=== PATIENT | female | born 1990 | race Caucasian/White ===

== ENCOUNTER 2023-12-27 11:16 | Emergency (ER) | payer OTHER, SELFPAY ==
[2023-12-27 11:41] VITALS: BP 154/104
--- NOTE | 2023-12-27 12:35 | ED.MUSCINJ ---
HPI-Injury
General
Chief Complaint: Musculo-Skeletal Complaint
Source: patient
Exam Limitations: none
Time Seen by Provider: 12/27/23 12:34
Nursing documentation reviewed up to this point in time: agreed with
Travel History
Have you had any contact with someone who has COVID-19?: No
Do you have any symptoms of coronavirus? Fever > 100 degrees, chills, cough, shortness of breath, sore throat, loss of taste or smell, muscle aches, or headache?: No
History of Present Illness-Injury
Initial Injury comments:
33-year-old female w hx IDDM, states she had carpal tunnel surgery on her right hand 10/22/[address] Angeles, she has had intermittent swelling and pain, her fingers 'turn blue' at times, she saw Dr. Angeles for follow-up because of these symptoms and she
states they did not really tell her anything about it just to watch it. She states she woke up today and every time she pronates her hand 'shakes.' She called the office today and has another appointment for next week but 'I didn't want to wait.'
She missed a month of work 10/22-12/22, went back to work this past week and now states she cannot work due to symptoms and now, including the shaking of her hand.
Past History
Past History
ED Past Medical History: Asthma, GERD, IDDM and Psychiatric (Anxiety)
ED Past Surgical History: Orthopedic (Carpal tunnel surgery Right wrist 10/2023) and Other ([place] teeth)
Social History
Tobacco: Smoker
Alcohol: Occasional
Drug: None
Personal: Single
Living: other (Significant other)
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
Family History: Other (grandfather in 60's of heart attack, also diabetic)
Review of Systems
Review of Systems
Allergies reviewed?: Yes
All Other Systems: ROS reviewed and negative except as documented in HPI and ROS
Constitutional: Denies fever
Musculoskeletal: Reports other (States intermittent swelling, discoloration, [id number] in fingertips of right hand and today started with tremors with supination of the hand.)
Skin: Reports no symptoms (well healing scar)
Phy Exam
Physical Exam
Physical Exam:
GENERAL: No acute distress. A&Ox3.
CONSTITUTIONAL: Afebrile.
RESPIRATORY: Regular respirations, nonlabored, lungs clear.
CARDIOVASCULAR: Regular rate and rhythm, no murmurs, no rubs.
MUSCULOSKELETAL: Tremors right hand only with supination. Observed texting with good, normal dexterity of all fingers. Full ROM of all fingers, wrist. No significant swelling, no discoloration, sensation intact and normal all fingers. Brisk
capillary refill all fingers. Moves with ease. Well perfused.
SKIN: Warm, dry, pink. Well healing vertical scar from carpal tunnel surgery. No redness or warmth.
PSYCH: Normal mood and affect. Well kept, interactive and appropriate
NEUROLOGIC: Awake, alert and oriented. No focal neurological deficits
MDM/Problems Addressed
Differential Diagnosis Includes:
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
MDM/Problems Addressed:
33-year-old female w hx IDDM, states she had carpal tunnel surgery on her right hand 10/22/[address] Angeles, she has had intermittent swelling and pain, her fingers 'turn blue' at times, she saw Dr. Angeles for follow-up because of these symptoms and she
states they did not really tell her anything about it just to watch it. She states she woke up today and every time she pronates her hand 'shakes.' She called the office today and has another appointment for next week but 'I didn't want to wait.'
She missed a month of work 10/22-12/22, went back to work this past week and now states she cannot work due to symptoms and now, including the shaking of her hand.
Shena Medel, had carpal tunnel surgery 10/22 has had intermittent numbness, pain, swelling, purple discoloration, pins and needles fingertips and saw Dr. Angeles or his PA last week for these and told to just wait and observe (per patient) She is here
because today when she supinates the hand it 'shakes' uncontrollably. She has appointment for this on 01/02 but does not want to wait. 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
shaking.
1:48 PM
Exam at this time is unremarkable
Tremors right hand intermittent and only with supination. Observed texting with good, normal dexterity of all fingers. Full ROM of all fingers, wrist. No significant swelling, no discoloration, sensation intact and normal all fingers. Brisk
capillary refill all fingers. Moves with ease. Well perfused.
At this time the circulation and neurological check of hand shows nothing worrisome.
With no new injury, xray is not indicated. Has wrist splint at she can use if it helps.
4 attempts to reach someone at Dr. Mosquera office to by myself and by the shotgun shell reprinting unit operator. Twice when shotgun shell reprinting unit operator got a human being, she was eventually put on hold and hung up on. Unable to reach anyone at Dr. Angeles's office
No urgent concerns at this time, she will keep her appoint on 01/02.
Chronic conditions affecting care: DM
*Critical Care Note
Total Time (30-74mins, 75-104mins- exclusive of procedures): Not Applicable
ED Attending Note
-
Portions of this chart may have been created with voice recognition software.� Occasional wrong word or��sound alike� substitutions may have occurred due to the inherent limitations of voice recognition software.
Discharge Plan
Departure
Patient Disposition: Home (Routine Discharge)
Date of Disposition: 12/27/23
Time of Disposition: 14:07
Patient with high blood pressure during this ER visit?: No
Condition: Good
Discharge Problem:
Tremor of right hand
Prescriptions:
No Action
venlafaxine [Effexor XR] 150 MG capsule,extended release 24hr
150 mg PO DAILY
insulin lispro [Admelog U-100 Insulin lispro] 100 UNIT/ML solution
100 unit SQ .VIA INSULIN PUMP
Patient Comments:
pt states she has an insulin pump and nuses it as directed and that the dose varies
ibuprofen 600 MG tablet
600 mg PO Q4HPRN PRN (Reason: cramps) 0RF
ondansetron 4 mg tablet,disintegrating
4 mg PO Q8H PRN (Reason: nausea and vomiting) Qty: 7 0RF
Referrals:
Renato Barrios MD [Family Provider] -
Activity Restrictions/Additional Instructions:
As we discussed, at this time the circulation and neurological check of your hand shows nothing worrisome.
With no new injury, xray is not indicated. Try wearing the wrist splint you have at home to see if it helps.
Keep your appointment with Dr. Angeles on the .
Interventions
Interventions:
*Risk Screen - Suicide Last Done: 12/27/23 11:36
*General Assessment Last Done: 12/27/23 11:36
*Neglect/Abuse Screening Last Done: 12/27/23 11:36
*Nursing Disposition Last Done: 12/27/23 14:34
ED-Musculoskeletal Assessment Last Done: 12/27/23 13:59
Discharge Date and Time
Discharge Date/Time: 12/27/23 14:34
Print Language: GERMAN
== END 2023-12-27 14:34 | disposition home or self-care (01) ==
LOC: EMR 11:16
PROVIDERS: EMERGENCY PHYSICIAN Student in an Organized Health Care Education/Training Program; FAMILY PHYSICIAN Family Medicine
DX: R25.1 Tremor, unspecified (principal); R20.2 Paresthesia of skin; M79.89 Other specified soft tissue disorders; L98.8 Other specified disorders of the skin and subcutaneous tissue; E11.9 Type 2 diabetes mellitus without complications; F41.9 Anxiety disorder, unspecified; K21.9 Gastro-esophageal reflux disease without esophagitis; G43.909 Migraine, unspecified, not intractable, without status migrainosus; F32.A Depression, unspecified; J45.909 Unspecified asthma, uncomplicated; F41.0 Panic disorder [episodic paroxysmal anxiety]; F17.200 Nicotine dependence, unspecified, uncomplicated; Z98.890 Other specified postprocedural states; Z79.4 Long term (current) use of insulin; Z96.41 Presence of insulin pump (external) (internal); Z88.1 Allergy status to other antibiotic agents; Z88.0 Allergy status to penicillin; Z88.8 Allergy status to other drugs, medicaments and biological substances
CPT/HCPCS: 99282

== ENCOUNTER 2024-03-25 21:23 | Emergency (ER) | payer OTHER, SELFPAY ==
[2024-03-25 21:25] VITALS: BP 173/101
[2024-03-25] MEDS: XANAX 0.5 MG PO (22:22)
[2024-03-25 22:23] VITALS: BP 142/76
--- NOTE | 2024-03-25 23:04 | ED.GENMED ---
History of Present Illness
General
Chief Complaint: Withdrawal Symptoms
Source: patient
Exam Limitations: none
Time Seen by Provider: 03/25/24 22:02
Nursing documentation reviewed up to this point in time: agreed with
History of Present Illness
History of Present Illness:
Patient with history of longstanding use of Xanax (over 10 years), for anxiety, presents to ED secondary to sudden onset of dizziness, nausea, vomiting, not feeling well, after not taking her Xanax for the past 2 days, as her medications were
accidentally 'thrown out'. Patient already has a prescription for Xanax, as prescribed by her primary care physician, but is unable to pick it up until Wednesday of next week. Denies fever or chills. Denies abdominal pain. Denies chest pain or
shortness of breath. Of note, however, patient states that she has discontinued use of Xanax in the past, without any symptoms.
Past History
Past History
ED Past Medical History: Asthma, GERD, IDDM and Psychiatric (Anxiety)
ED Past Surgical History: Orthopedic (Carpal tunnel surgery Right wrist 10/2023) and Other ([place] teeth)
Social History
Tobacco: Smoker
Alcohol: Occasional
Drug: None
Personal: Single
Living: other (Significant other)
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
Family History: Other (grandfather in 60's of heart attack, also diabetic)
Review of Systems
Review of Systems
Allergies reviewed?: Yes
All Other Systems: ROS reviewed and negative except as documented in HPI and ROS
Constitutional: Reports no symptoms
EENT: Reports no symptoms
Respiratory: Reports no symptoms
Cardiac: Reports no symptoms
ABD/GI: Reports nausea and vomiting; Denies abdominal pain
: Reports no symptoms
Musculoskeletal: Reports no symptoms
Skin: Reports no symptoms
Neurological: Reports dizzy
Phy Exam
Physical Exam
Physical Exam:
Physical Exam
General: no apparent distress, not acutely ill. afebrile.
Head: nc/at. eomi
Neck: supple. no meningeal signs.
Heart: s1/s2 regular rate and rhythm, no murmur. equal radial pulses.
Lungs: no acute respiratory distress. clear bilaterally
Abdomen: normal bowel sounds. not tender.
Neuro: alert and oriented. no focal neurological deficits
Skin: no rash
Psychiatric: well kept. interactive and cooperative
Extremities: no edema. no calf tenderness.
Course
Orders/Labs/Results
Orders:
Orders
03/25/24 21:35
EKG [Electrocardiogram (*1)] Urgent
Reason for Study: Tachycardia
EKG- Treatment ONCE
03/25/24 22:10
Alprazolam [Xanax] 0.5 mg PO NOW STA
Vital Signs
Initial and Last Documented VS:
Initial Vital Signs
Temp Pulse BP Pulse Ox
98.0 F 112 173/101 100
03/25/24 21:25 03/25/24 21:25 03/25/24 21:25 03/25/24 21:25
Last Documented Vital Signs
Temp Pulse Resp BP Pulse Ox
99.3 F 78 18 130/76 99
03/25/24 23:37 03/25/24 23:37 03/25/24 23:37 03/26/24 00:12 03/26/24 00:12
MDM/Problems Addressed
MDM/Problems Addressed:
Patient given 0.5 mg of Xanax and observed afterwards, with significant improvement symptoms. Initial tachycardia resolved and patient reports improvement overall. As such, patient will be discharged home at this time, in stable condition, to the
care of her family, with recommendation to follow-up with primary care physician next week. Has prescription for Xanax is to be picked up at pharmacy on Wednesday, patient will be given short course, to be covered over the weekend.
*Critical Care Note
Total Time (30-74mins, 75-104mins- exclusive of procedures): Not Applicable
ED Attending Note
-
Portions of this chart may have been created with voice recognition software.� Occasional wrong word or��sound alike� substitutions may have occurred due to the inherent limitations of voice recognition software.
Discharge Plan
Departure
Patient Disposition: Home (Routine Discharge)
Date of Disposition: 03/25/24
Time of Disposition: 23:59
Patient with high blood pressure during this ER visit?: Yes
Discharge Problem:
Drug withdrawal
Instructions: Drug Withdrawal (DC)
Prescriptions:
New
alprazolam [Xanax XR] 0.5 mg tablet extended release 24 hr
0.5 mg PO DAILY Qty: 3 0RF
No Action
venlafaxine [Effexor XR] 150 MG capsule,extended release 24hr
150 mg PO DAILY
insulin lispro [Admelog U-100 Insulin lispro] 100 UNIT/ML solution
100 unit SQ .VIA INSULIN PUMP
Patient Comments:
pt states she has an insulin pump and nuses it as directed and that the dose varies
ibuprofen 600 MG tablet
600 mg PO Q4HPRN PRN (Reason: cramps) 0RF
ondansetron 4 mg tablet,disintegrating
4 mg PO Q8H PRN (Reason: nausea and vomiting) Qty: 7 0RF
Referrals:
Sarah Palacios PA [Family Provider] -
Activity Restrictions/Additional Instructions:
As discussed, please follow-up with your primary care physician with any further concerns. Your prescription has been sent electronically to [facility] pharmacy in [place].
Interventions
Interventions:
*Risk Screen - Suicide Last Done: 03/25/24 21:31
*General Assessment Last Done: 03/25/24 21:31
*Neglect/Abuse Screening Last Done: 03/25/24 21:31
*Nursing Disposition Last Done: 03/26/24 00:12
ED- Neurological Assessment Last Done: 03/25/24 23:39
ED-Psychological Assessment Last Done: 03/25/24 23:39
Discharge Date and Time
Discharge Date/Time: 03/26/24 00:14
Print Language: AMERICAN
[2024-03-25 23:37] VITALS: BP 124/71
[2024-03-26 00:12] VITALS: BP 130/76
== END 2024-03-26 00:14 | disposition home or self-care (01) ==
LOC: EMR 21:23
PROVIDERS: EMERGENCY PHYSICIAN Emergency Medicine; FAMILY PHYSICIAN Family Medicine
DX: F19.939 Other psychoactive substance use, unspecified with withdrawal, unspecified (principal); R11.2 Nausea with vomiting, unspecified; R42 Dizziness and giddiness; E11.9 Type 2 diabetes mellitus without complications; F17.200 Nicotine dependence, unspecified, uncomplicated; F41.9 Anxiety disorder, unspecified; J45.909 Unspecified asthma, uncomplicated
CPT/HCPCS: 99283; 93005

== ENCOUNTER 2024-05-14 22:19 | Emergency (ER) | payer OTHER, SELFPAY ==
[2024-05-14 22:20] VITALS: BP 154/96
[2024-05-14 22:40] LABS: Urine Albumin Negative (Neg - Trace); Urine Bilirubin Negative (Negative); Urine Character Clear (Clear); Urine Color Yellow; Urine Glucose 3+ (Negative); Urine Ketone Negative (Negative); Urine Leukocyte Negative (Negative); Urine Nitrite Negative (Negative); Urine Occult Blood Negative (Negative); Urine Urobilinogen Negative (Neg - 1+)
[2024-05-14 22:40] LABS: Hemoglobin 13.6 g/dL (12.0-16.0); Mean Corp Hgb Conc. 34.9 g/dL (33.0-37.0); Mean Corpuscular Hgb 30.8 pg (27.0-31.0); Mean Corpuscular Volume 88.4 fL (81.0-99.0); Mean Platelet Volume 10.4 fL (7.4-10.4); Platelet Count 370 10^3/uL (130-400); Red Blood Cell Count 4.41 10^6/uL (4.20-5.40); Red Cell Dist. Width 11.8 % (11.5-14.5)
[2024-05-14 23:22] LABS: Blood Urea Nitrogen 19 mg/dl (7-17); Calcium 9.4 mg/dl (8.4-10.2); Carbon Dioxide 21 mmol/L (22-30); Chloride 98 mmol/L (98-107); Glucose 352 mg/dl (70-99); Potassium 4.4 mmol/L (3.5-5.1); Sodium 138 mmol/L (135-145); eGFR > 60.00
[2024-05-15 01:18] VITALS: BMI 34.9
--- NOTE | 2024-05-15 01:19 | ED.GENMED ---
History of Present Illness
General
Chief Complaint: Fatigue
Source: patient and family
Exam Limitations: none
Time Seen by Provider: 05/15/24 00:46
Nursing documentation reviewed up to this point in time: agreed with
History of Present Illness
History of Present Illness:
Pleasant 33-year-old female who presents with fatigue and weakness for the last week. She went to urgent care on and was tested for flu and COVID which were both negative. Patient is a type I diabetic and has an insulin pump. She states
that her blood sugar has been running high but states that it is typical since she has not been feeling well. She closely monitors her blood sugars. She does see a neurologist who ordered an MRI and request specific testing patient denies chest
pain or shortness of breath. Denies current fevers.
Patient with a past medical history significant for migraines, dizziness, asthma, she does wear CPAP for sleep apnea, she is a former smoker. She has had palpitations.
Past History
Past History
ED Past Medical History: Asthma, GERD, IDDM and Psychiatric (Anxiety)
ED Past Surgical History: Orthopedic (Carpal tunnel surgery Right wrist 10/2023) and Other ([place] teeth)
Social History
Tobacco: Smoker
Alcohol: Occasional
Drug: None
Personal: Single
Living: other (Significant other)
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
Family History: Other (grandfather in 60's of heart attack, also diabetic)
Review of Systems
Review of Systems
Allergies reviewed?: Yes
Other source history: family
All Other Systems: ROS reviewed and negative except as documented in HPI and ROS
Constitutional: Reports fatigue, sleep disturbance and chills
EENT: Reports no symptoms
Respiratory: Reports no symptoms
Cardiac: Reports no symptoms
ABD/GI: Reports no symptoms
: Reports no symptoms
Musculoskeletal: Reports no symptoms
Skin: Reports no symptoms
Neurological: Reports no symptoms
Endocrine: Reports no symptoms
Hematologic/Lymphatic: Reports no symptoms
Psychiatric: Reports no symptoms
Phy Exam
General Physical Exam
General Presentation: well appearing and no apparent distress
General Skin: warm and dry
General Habitus: normal
General Mental: alert
General Hydration: appears well hydrated
ENT Exam
ENT Exam: EOMI, pharynx normal, neck supple and normocephalic
Eye Exam
Eye Exam: PERRL, cornea clear and conjunctiva normal
Cardiovascular Exam
Cardiovascular Exam: regular rate/rhythm, no edema, no murmur and normal peripheral pulses
Pulmonary Exam
Pulmonary Exam: lungs clear, no respiratory distress, no rales, no crackles, no rhonchi, no stridor, no wheezing and no cough
Gastrointestinal Exam
Gastrointestinal Exam: normal bowel sounds, non tender, soft, no organomegaly, no pulsatile mass and non distended
Neurological Exam
Neurological Exam: alert, oriented x3, no motor deficits and speech normal
Musculoskeletal Exam
Musculoskeletal Exam: full ROM and no edema
Skin Exam
Skin Exam: normal color, warm/dry, no rash, no petechia and other (Multiple piercings and tattoos)
Psychiatric Exam
Psychiatric Exam: normal mood/affect
Course
Orders/Labs/Results
Orders:
Orders
05/14/24 22:30
Basic Metabolic Panel Urgent
C-Reactive Protein Urgent
Comment: ADDED
Cardiovascular Evaluation Urgent
Comment: ADDED
Complete Blood Count/No Diff Urgent
Erythrocyte Sed Rate Urgent
Comment: ADDED
Glycohemoglobin (HgbA1c) Urgent
TSH Reflex To Free T4 Urgent
Comment: ADDED
05/14/24 22:33
Urinalysis Urgent
Date Specimen was Collected: 05/14/24
Time Specimen was Collected: 22:25
05/15/24 01:13
Add On- LAB Urgent
Comments:: blood in lab
Tests Added?: ESR, CRP
05/15/24 01:17
Add On- LAB Urgent
Tests Added?: TSH free T4, Lipid Panel, Hemoglobin A1c,
05/15/24 01:19
CT Head W/o Iv Contrast Urgent
Comment:
Reason For Exam: fatigue, aches, hx of yeboah
05/15/24 01:53
Acetaminophen [Tylenol] 650 mg .ROUTE .STK-MED ONE
05/15/24 01:54
Acetaminophen [Tylenol] 650 mg PO NOW STA
Abnormal Lab Results
05/14/24 05/14/24
22:30 22:33
Carbon Dioxide 21 L mmol/L
(22-30)
BUN 19 H mg/dl
(7-17)
Glucose 352 H mg/dl
(70-99)
Total Cholesterol 208 H mg/dl
(50-199)
Urine Glucose 3+ A
(Negative)
05/14/24 22:30
05/14/24 22:30
Vital Signs
Initial and Last Documented VS:
Initial Vital Signs
Temp Pulse Resp BP Pulse Ox
98.2 F 104 24 154/96 100
05/14/24 22:20 05/14/24 22:20 05/14/24 22:20 05/14/24 22:20 05/14/24 22:20
Last Documented Vital Signs
Temp Pulse Resp BP Pulse Ox
98.2 F 82 16 126/86 98
05/14/24 22:20 05/15/24 01:50 05/15/24 01:50 05/15/24 01:50 05/15/24 01:50
*Radiology
Radiology exam reviewed: radiology read reviewed
*Pulse Oximetry
Patient hypoxic: no
*[place] [employer] Interpretation
Rate: normal
Interpretation: normal
*Critical Care Note
Total Time (30-74mins, 75-104mins- exclusive of procedures): Not Applicable
Update Note
Update Note:
CT HEAD
IMPRESSION:
No acute hemorrhage, herniation, or hydrocephalus.
No calvarial fracture.
The visualized paranasal sinuses and mastoid air cells are clear.
ED Attending Note
-
Portions of this chart may have been created with voice recognition software.� Occasional wrong word or��sound alike� substitutions may have occurred due to the inherent limitations of voice recognition software.
Discharge Plan
Departure
Patient Disposition: Home (Routine Discharge)
Date of Disposition: 05/15/24
Time of Disposition: 02:26
Patient with high blood pressure during this ER visit?: Yes
Discharge Problem:
Fatigue, Acute hyperglycemia
Instructions: Fatigue (DC), Diabetes Type 1, Adult (DC), Generalized Weakness (DC), BLOOD PRESSURE
Prescriptions:
No Action
venlafaxine [Effexor XR] 150 MG capsule,extended release 24hr
150 mg PO DAILY
insulin lispro [Admelog U-100 Insulin lispro] 100 UNIT/ML solution
100 unit SQ .VIA INSULIN PUMP
Patient Comments:
pt states she has an insulin pump and nuses it as directed and that the dose varies
ibuprofen 600 MG tablet
600 mg PO Q4HPRN PRN (Reason: cramps) 0RF
ondansetron 4 mg tablet,disintegrating
4 mg PO Q8H PRN (Reason: nausea and vomiting) Qty: 7 0RF
alprazolam [Xanax XR] 0.5 mg tablet extended release 24 hr
0.5 mg PO DAILY Qty: 3 0RF
Referrals:
Renato Barrios MD [Family Provider] -
Clara Carbajal MD [Consulting Staff] - As needed
Activity Restrictions/Additional Instructions:
It was a pleasure meeting you and taking part in your care. We hope for your continued healing and wellness.
Please read discharge instructions in their entirety. However, they are for general education and may not describe your exact diagnosis at discharge. Information on your ER visit and medical conditions were discussed with you along with appropriate
follow up information...
If indicated, please take your medications as instructed and indicated on discharge paperwork.
Please schedule a follow up appointment as directed. Call to schedule an appointment
Please return to the emergency department with ANY change in, persisting, or worsening of symptoms. If any of your symptoms do not improve, or persist, or become more severe within 6-12 hours, please return to the emergency department for further
care.
Please return to the emergency department if you develop a headache, neck pain/stiffness, fever greater than 100.4F, chest pain, shortness of breath, persistent nausea, vomiting, slurred speech, difficulty walking, numbness/tingling, weakness, signs
of infection or any other symptoms that are worrisome to you.
If you have any questions or concerns please do not hesitate to call the Hospital at
Interventions
Interventions:
*Risk Screen - Suicide Last Done: 05/14/24 22:20
*General Assessment Last Done: 05/15/24 00:00
*Neglect/Abuse Screening Last Done: 05/14/24 22:20
*ED COVID-19 Vaccine History Last Done: 05/15/24 00:00
ED- Neurological Assessment Last Done: 05/15/24 01:18
Discharge Date and Time
Print Language: GHANAIAN
[2024-05-15 01:50] VITALS: BP 126/86
[2024-05-15] MEDS: TYLENOL 650 MG PO (01:54)
[2024-05-15 02:10] LABS: HDL Cholesterol 71 mg/dl; LDL Cholesterol, Calculated 110 mg/dl; Total Cholesterol 208 mg/dl (50-199); Triglyceride 138 mg/dl (10-149); Very Low Density Lipoprotein 27 mg/dl (0-30)
[2024-05-15 02:14] LABS: Erythrocyte Sed Rate 11 mm/hour (0-20)
[2024-05-15 03:35] LABS: C-Reactive Protein < 5.00 mg/L (0.0-10.00)
[2024-05-15 04:05] LABS: TSH Reflex To Free T4 2.88 uIU/ml (0.47-4.68)
[2024-05-15 08:07] LABS: Glycohemoglobin (HgbA1c) 9.6 % (4.0-5.6)
== END 2024-05-15 02:42 | disposition home or self-care (01) ==
LOC: EMR 22:19
PROVIDERS: EMERGENCY PHYSICIAN Student in an Organized Health Care Education/Training Program; FAMILY PHYSICIAN Family Medicine
DX: E10.65 Type 1 diabetes mellitus with hyperglycemia (principal); R53.83 Other fatigue; F17.200 Nicotine dependence, unspecified, uncomplicated; R03.0 Elevated blood-pressure reading, without diagnosis of hypertension
CPT/HCPCS: 99284; 70450; 80048; 80061; 81003; 83036; 84443; 85027; 85652; 86140

== ENCOUNTER 2024-07-04 16:55 | Emergency (ER) | payer OTHER, SELFPAY ==
[2024-07-04 16:59] VITALS: BP 153/109
[2024-07-04 17:23] LABS: % Basophils 0.3 % (0-2); % Eosinophils 1.6 % (0-6); % Immature Granulocytes 0.3 % (0-0.5); % Monocytes 6.1 % (1.7-9.3); % Neutrophils 55.7 % (42.2-75.2); Absolute Eosinophils 0.1 10^3/uL (0-0.7); Absolute Lymphocytes 2.5 10^3/uL (1.2-3.4); Absolute Monocytes 0.4 10^3/uL (0.1-0.6); Absolute Neutrophils 3.9 10^3/uL (1.4-6.5); Hematocrit 36.7 % (37.0-47.0); Hemoglobin 13.1 g/dL (12.0-16.0); Mean Corp Hgb Conc. 35.7 g/dL (33.0-37.0); Mean Corpuscular Hgb 30.5 pg (27.0-31.0); Mean Corpuscular Volume 85.5 fL (81.0-99.0); Mean Platelet Volume 10.2 fL (7.4-10.4); Nucleated Red Blood Cells % 0 %; Platelet Count 318 10^3/uL (130-400); Red Blood Cell Count 4.29 10^6/uL (4.20-5.40); Red Cell Dist. Width 11.8 % (11.5-14.5); White Blood Cell Count 6.9 10^3/uL (4.8-10.8)
[2024-07-04 17:35] LABS: HCG, Serum Qualitative Screen Negative
[2024-07-04 17:39] LABS: ALT (SGPT) 15 U/L (0-35); AST (SGOT) 19 U/L (14-36); Albumin 4.7 g/dl (3.5-5.0); Alkaline Phosphatase 105 U/L (38-126); Blood Urea Nitrogen 16 mg/dl (7-17); Calcium 9.6 mg/dl (8.4-10.2); Carbon Dioxide 20 mmol/L (22-30); Chloride 102 mmol/L (98-107); Glucose 319 mg/dl (70-99); Potassium 4.4 mmol/L (3.5-5.1); Sodium 138 mmol/L (135-145); Total Bilirubin 0.4 mg/dl (0.2-1.3); Total Protein 7.4 g/dl (6.3-8.2); eGFR > 60.00
[2024-07-04 17:45] LABS: Urine Albumin Negative (Neg - Trace); Urine Bilirubin Negative (Negative); Urine Character Clear (Clear); Urine Color Yellow; Urine Glucose 3+ (Negative); Urine Ketone Negative (Negative); Urine Leukocyte Negative (Negative); Urine Nitrite Negative (Negative); Urine Occult Blood Negative (Negative); Urine Specific Gravity 1.015 (<1.030); Urine Urobilinogen Negative (Neg - 1+)
[2024-07-04] MEDS: NSS 1000 IV (19:57)
[2024-07-04] MEDS: TORADOL 15 MG IV (19:58)
[2024-07-04] MEDS: ZOFRAN 4 MG IV (19:58)
--- NOTE | 2024-07-04 22:02 | ED.GENMED ---
History of Present Illness
General
Chief Complaint: Abdominal Pain
Source: patient and records
Exam Limitations: none
Time Seen by Provider: 07/04/24 19:20
Nursing documentation reviewed up to this point in time: agreed with
History of Present Illness
History of Present Illness:
Patient is a 33-year-old female presents to the emergency department complaining of burning in her lower abdomen with cramping that started yesterday. Patient was having burning in her low back for the past 2 days. Patient denies hematuria,
urgency or frequency. Patient admits to nausea but denies any vomiting, diarrhea or constipation. Patient denies fever or chills. Patient states it was across her total lower abdomen yesterday and now right seems to be greater than left. Patient
denies any abnormal bleeding. Patient's last period was 1-1/2 weeks ago. Patient denies any vaginal discharge or bleeding at this time. Patient had an episode about a year ago and sounds though she was placed on progesterone which cleared up.
Patient was trying to see a fisherman helper but cannot get an appointment till the end of July. Patient has a cyber crime investigator she sees for diabetes and her sugars have been difficult to control.
Past History
Past History
ED Past Medical History: Asthma, GERD, IDDM and Psychiatric (Anxiety)
ED Past Surgical History: Orthopedic (Carpal tunnel surgery Right wrist 10/2023) and Other ([place] teeth)
Social History
Tobacco: Smoker
Alcohol: Occasional
Drug: None
Personal: Single
Living: other (Significant other)
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
Family History: Other (grandfather in 60's of heart attack, also diabetic)
Review of Systems
Review of Systems
All Other Systems: ROS reviewed and negative except as documented in HPI and ROS
Constitutional: Reports no symptoms
EENT: Reports no symptoms
Respiratory: Reports no symptoms
Cardiac: Reports no symptoms
ABD/GI: Reports abdominal pain and nausea; Denies vomiting, diarrhea, constipated, bloody stools, black stools or anorexia
: Reports dysuria; Denies bleeding
Musculoskeletal: Reports back pain
Skin: Reports no symptoms
Neurological: Reports no symptoms
Hematologic/Lymphatic: Reports no symptoms
Phy Exam
Physical Exam
Physical Exam:
Physical Exam
General: mild to moderate distress, alert and appropriate, obese, well hydrated
HENT: Normocephalic, supple with no lymphadenopathy, no thyromegaly
Eyes: Clear sclera, conjuctiva without injection
Heart: Regular rhythm and rate. No S3, S4. No murmur.
Lungs: No respiratory distress, no stridor, lung sounds clear and equal bilaterally
Abdomen: Soft, mild diffuse lower abdominal tenderness right greater than left without guarding or rebound, no organomegaly, no CVA tenderness, BS good
Neuro: Alert and oriented x 3, CN II - XII intact, no motor focality, no cerebellar dysfunction
Skin: no rash
Psychiatric: well kept. interactive and cooperative
Extremities: No edema, cyanosis, tenderness, Good and equal peripheral pulses.
Musculoskeletal: Mild tenderness in the midline of the region of L4, L5 and S1 without crepitus or deformity. No neurologic findings consistent with that
Course
Orders/Labs/Results
Orders:
Orders
07/04/24 17:02
Test Result ONCE
07/04/24 17:09
Complete Blood Count/With Diff Urgent
Comprehensive Metabolic Panel Urgent
HCG, Serum Qualitative Screen Urgent
07/04/24 17:10
Urinalysis Reflex To Culture Urgent
Date Specimen was Collected: 07/04/24
Time Specimen was Collected: 17:02
07/04/24 18:20
US Pelvis W Transvag Combined Urgent
Reason For Exam: pelvic pain/burning
07/04/24 19:50
CT Abd/Pel (IV only)-DH only Urgent
Comment:
Reason For Exam: lower abd tender R>L
0.9% Sodium Chloride 1000 ml [Nss] 1,000 ml IV BOLUS
Ketorolac [Toradol] 15 mg IV NOW STA
Ondansetron Injectable [Zofran] 4 mg IV NOW STA
Abnormal Lab Results
07/04/24 07/04/24
17:09 17:10
Hct 36.7 L %
(37.0-47.0)
Carbon Dioxide 20 L mmol/L
(22-30)
Glucose 319 H mg/dl
(70-99)
Urine Glucose 3+ A
(Negative)
07/04/24 17:09
07/04/24 17:09
Vital Signs
Initial and Last Documented VS:
Initial Vital Signs
Temp Pulse Resp BP Pulse Ox
99.3 F 109 18 153/109 99
07/04/24 16:59 07/04/24 16:59 07/04/24 16:59 07/04/24 16:59 07/04/24 16:59
Last Documented Vital Signs
Temp Pulse Resp BP Pulse Ox
98.2 F 85 16 134/79 97
07/04/24 22:12 07/04/24 22:12 07/04/24 22:12 07/04/24 22:12 07/04/24 22:12
*Radiology
Radiology exam reviewed: radiology read reviewed
*Pulse Oximetry
Patient hypoxic: no
*EKG
Interpreted by ED Provider?: NA
*Wireless Internet Installer Interpretation
Rate: Wireless Internet Installer- N/A
*Critical Care Note
Total Time (30-74mins, 75-104mins- exclusive of procedures): Not Applicable
Update Note
Update Note:
Patient feels somewhat better. Will get the patient to follow-up with gynecology. Uncertain of the etiology of the patient's pain. Does not appear to be ovarian or uterine or GI. Given the acute nature of it I also do not believe it is a
diabetic neuropathy. Patient will deal with her sugars with her cyber crime investigator as this has been the way she has done it in the past.
ED Attending Note
-
Portions of this chart may have been created with voice recognition software.� Occasional wrong word or��sound alike� substitutions may have occurred due to the inherent limitations of voice recognition software.
Discharge Plan
Departure
Patient Disposition: Home (Routine Discharge)
Date of Disposition: 07/04/24
Time of Disposition: 22:03
Patient with high blood pressure during this ER visit?: Yes
Condition: Fair
Covid-19: Not Applicable
Discharge Problem:
Lower abdominal pain
Instructions: Abdominal Pain, BLOOD PRESSURE
Prescriptions:
New
ketorolac 10 mg tablet
10 mg PO QID PRN (Reason: pain) Qty: 20 0RF
No Action
venlafaxine [Effexor XR] 150 MG capsule,extended release 24hr
150 mg PO DAILY
insulin lispro [Admelog U-100 Insulin lispro] 100 UNIT/ML solution
100 unit SQ .VIA INSULIN PUMP
Patient Comments:
pt states she has an insulin pump and nuses it as directed and that the dose varies
ibuprofen 600 MG tablet
600 mg PO Q4HPRN PRN (Reason: cramps) 0RF
ondansetron 4 mg tablet,disintegrating
4 mg PO Q8H PRN (Reason: nausea and vomiting) Qty: 7 0RF
alprazolam [Xanax XR] 0.5 mg tablet extended release 24 hr
0.5 mg PO DAILY Qty: 3 0RF
Referrals:
Renato Barrios MD [Family Provider] -
Nando Garcia MD [Active] - Call in 1-3 days for appt
Interventions
Interventions:
*Risk Screen - Suicide Last Done: 07/04/24 16:59
*General Assessment Last Done: 07/04/24 16:59
*Neglect/Abuse Screening Last Done: 07/04/24 16:59
*ED COVID-19 Vaccine History Last Done: 07/04/24 16:59
*Nursing Disposition Last Done: 07/04/24 22:12
AD-Xnkclh-Aolbnbcsxb Assessment Last Done: 07/04/24 17:53
Discharge Date and Time
Discharge Date/Time: 07/04/24 22:13
Print Language: NEPALI
[2024-07-04 22:12] VITALS: BP 134/79
== END 2024-07-04 22:13 | disposition home or self-care (01) ==
LOC: EMR 16:55
PROVIDERS: Emergency Medicine; EMERGENCY PHYSICIAN Emergency Medicine; FAMILY PHYSICIAN Family Medicine
DX: R10.30 Lower abdominal pain, unspecified (principal); E11.9 Type 2 diabetes mellitus without complications; R03.0 Elevated blood-pressure reading, without diagnosis of hypertension; F17.200 Nicotine dependence, unspecified, uncomplicated
CPT/HCPCS: 99285; 96374; 96375; 96361; 74177; 76830; 76856; 80053; 81003; 84703; 85025; Q9967

== ENCOUNTER → 2024-07-18 14:17 | Outpatient (REF) | payer OTHER, SELFPAY | LOC: RAD 14:17 | PROVIDERS: FAMILY PHYSICIAN Family Medicine | DX: M25.50 Pain in unspecified joint (principal) | CPT/HCPCS: 72110; 72202; 73130; 73564 ==

== ENCOUNTER 2024-07-18 15:09 | Emergency (ER) | payer OTHER, SELFPAY ==
[2024-07-18 15:10] VITALS: BP 146/97
[2024-07-18 15:20] LABS: Glucose - Point of Care 249 mg/dl (70-99)
[2024-07-18 15:38] LABS: % Basophils 0.2 % (0-2); % Eosinophils 1.4 % (0-6); % Immature Granulocytes 0.3 % (0-0.5); % Lymphocytes 26.7 % (20.5-51.1); % Monocytes 5.2 % (1.7-9.3); % Neutrophils 66.2 % (42.2-75.2); Absolute Eosinophils 0.1 10^3/uL (0-0.7); Absolute Lymphocytes 1.8 10^3/uL (1.2-3.4); Absolute Monocytes 0.3 10^3/uL (0.1-0.6); Absolute Neutrophils 4.4 10^3/uL (1.4-6.5); Hematocrit 36.5 % (37.0-47.0); Hemoglobin 12.9 g/dL (12.0-16.0); Mean Corp Hgb Conc. 35.3 g/dL (33.0-37.0); Mean Corpuscular Hgb 31.3 pg (27.0-31.0); Mean Corpuscular Volume 88.6 fL (81.0-99.0); Mean Platelet Volume 9.8 fL (7.4-10.4); Nucleated Red Blood Cells % 0 %; Platelet Count 339 10^3/uL (130-400); Red Blood Cell Count 4.12 10^6/uL (4.20-5.40); Red Cell Dist. Width 11.8 % (11.5-14.5); White Blood Cell Count 6.6 10^3/uL (4.8-10.8)
[2024-07-18 15:51] LABS: ALT (SGPT) 14 U/L (0-35); AST (SGOT) 18 U/L (14-36); Albumin 4.1 g/dl (3.5-5.0); Alkaline Phosphatase 85 U/L (38-126); Blood Urea Nitrogen 9 mg/dl (7-17); Calcium 9.2 mg/dl (8.4-10.2); Carbon Dioxide 20 mmol/L (22-30); Chloride 103 mmol/L (98-107); Glucose 260 mg/dl (70-99); Potassium 4.2 mmol/L (3.5-5.1); Sodium 136 mmol/L (135-145); Total Bilirubin 0.6 mg/dl (0.2-1.3); Total Protein 6.8 g/dl (6.3-8.2); eGFR > 60.00
--- NOTE | 2024-07-18 16:43 | ED.GENMED ---
History of Present Illness
General
Chief Complaint: Chest Pain
Source: patient
Exam Limitations: none
Time Seen by Provider: 07/18/24 16:16
Nursing documentation reviewed up to this point in time: agreed with
History of Present Illness
History of Present Illness:
Patient to ED stating ' i just dont feel well'. Developed n/v bodyaches over the weekend. Now with chest tightness, pain with deep breathing. COmplains of headache and dizziness. No report of fever at home. Temp here 99.5. SHe states this is a
fever for her. Brought to ED by spouse for eval.
Past History
Past History
ED Past Medical History: Asthma, GERD, IDDM and Psychiatric (Anxiety)
ED Past Surgical History: Orthopedic (Carpal tunnel surgery Right wrist 10/2023) and Other ([place] teeth)
Social History
Tobacco: Smoker
Alcohol: Occasional
Drug: None
Personal: Single
Living: other (Significant other)
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
Family History: Other (grandfather in 60's of heart attack, also diabetic)
Review of Systems
Review of Systems
Allergies reviewed?: Yes
All Other Systems: ROS reviewed and negative except as documented in HPI and ROS
Constitutional: Reports fatigue and other (generalized bodyache)
EENT: Reports no symptoms
Respiratory: Reports trouble breathing
Cardiac: Reports chest pain
ABD/GI: Reports nausea and vomiting
: Reports no symptoms
Skin: Reports no symptoms
Neurological: Reports headache and weakness
Psychiatric: Reports no symptoms
Phy Exam
General Physical Exam
General Presentation: well appearing
General age: appears stated age
General Skin: warm and dry
General Habitus: normal
General Mental: alert
Cardiovascular Exam
Cardiovascular Exam: regular rate/rhythm and no edema
Pulmonary Exam
Pulmonary Exam: lungs clear and no respiratory distress
Gastrointestinal Exam
Gastrointestinal Exam: normal bowel sounds, non tender and soft
Musculoskeletal Exam
Musculoskeletal Exam: full ROM and neuro vasc intact
Skin Exam
Skin Exam: normal color, warm/dry and no rash
Psychiatric Exam
Psychiatric Exam: normal mood/affect
Scores
Heart Score for Chest Pain Patients
STEMI patient?: Not applicable
Course
Orders/Labs/Results
Orders:
Orders
07/18/24 15:11
EKG [Electrocardiogram (*1)] Urgent
Reason for Study: Chest Pain
07/18/24 15:12
EKG- Treatment ONCE
07/18/24 15:28
C-Reactive Protein Urgent
Comment: ADD ON
CMP [Comprehensive Metabolic Panel] Urgent
Complete Blood Count/With Diff Urgent
Erythrocyte Sed Rate Urgent
Comment: ADD ON
Lipase Urgent
Comment: ADD ON
TSH Reflex To Free T4 Urgent
Comment: ADD ON
07/18/24 16:41
Add On- LAB Urgent
Tests Added?: TSH reflex free T4, sed rate, CRP
CR Chest - 2 Views Urgent
Comment:
Reason For Exam: SOB,chest pain
07/18/24 16:43
Add On- LAB Urgent
Tests Added?: Lipase
07/18/24 16:48
0.9% Sodium Chloride 1000 ml [Nss] 1,000 ml IV BOLUS
Ketorolac [Toradol] 30 mg IV NOW STA
Ondansetron Injectable [Zofran] 4 mg IV NOW STA
07/18/24 16:51
COVID-19 Antigen Urgent
Source: Nasal Swab
Influenza A+B Rapid Molecular Urgent
NAY Source: Nasal Swab
Specimen Description:
07/18/24 17:07
Urinalysis Reflex To Culture Urgent
Date Specimen was Collected: 07/18/24
Time Specimen was Collected: 17:03
Abnormal Lab Results
07/18/24 07/18/24 07/18/24
15:19 15:28 17:07
RBC 4.12 L 10^6/uL
(4.20-5.40)
Hct 36.5 L %
(37.0-47.0)
MCH 31.3 H pg
(27.0-31.0)
Carbon Dioxide 20 L mmol/L
(22-30)
Glucose 260 H mg/dl
(70-99)
Urine Glucose Trace A
(Negative)
POC Glucose 249 H mg/dl
(70-99)
07/18/24 15:28
07/18/24 15:28
Vital Signs
Initial and Last Documented VS:
Initial Vital Signs
Temp Pulse Resp BP Pulse Ox
99.8 F 107 18 146/97 98
07/18/24 15:10 07/18/24 15:10 07/18/24 15:10 07/18/24 15:10 07/18/24 15:10
Last Documented Vital Signs
Temp Pulse Resp BP Pulse Ox
99.8 F 60 15 113/77 99
07/18/24 15:10 07/18/24 19:15 07/18/24 19:15 07/18/24 19:00 07/18/24 19:15
*Radiology
Radiology exam reviewed: radiology read reviewed
*Pulse Oximetry
Patient hypoxic: no
*EKG
Interpretation: normal
Rate: normal
Rhythm: sinus
*Critical Care Note
Total Time (30-74mins, 75-104mins- exclusive of procedures): Not Applicable
ED Attending Note
-
Portions of this chart may have been created with voice recognition software.� Occasional wrong word or��sound alike� substitutions may have occurred due to the inherent limitations of voice recognition software.
Discharge Plan
Departure
Patient Disposition: Home (Routine Discharge)
Date of Disposition: 07/18/24
Time of Disposition: 19:14
Patient with high blood pressure during this ER visit?: No
Condition: Good
Covid-19: Not Applicable
Discharge Problem:
Malaise
Instructions: Chest Pain That Is Not Caused by the Heart (DC), Nausea and Vomiting, Adult (DC)
Prescriptions:
No Action
venlafaxine [Effexor XR] 150 MG capsule,extended release 24hr
150 mg PO DAILY
insulin lispro [Admelog U-100 Insulin lispro] 100 UNIT/ML solution
100 unit SQ .VIA INSULIN PUMP
Patient Comments:
pt states she has an insulin pump and nuses it as directed and that the dose varies
ibuprofen 600 MG tablet
600 mg PO Q4HPRN PRN (Reason: cramps) 0RF
ondansetron 4 mg tablet,disintegrating
4 mg PO Q8H PRN (Reason: nausea and vomiting) Qty: 7 0RF
alprazolam [Xanax XR] 0.5 mg tablet extended release 24 hr
0.5 mg PO DAILY Qty: 3 0RF
ketorolac 10 mg tablet
10 mg PO QID PRN (Reason: pain) Qty: 20 0RF
Referrals:
Renato Barrios MD [Family Provider] - Tomorrow
Interventions
Interventions:
*Risk Screen - Suicide Last Done: 07/18/24 15:15
*General Assessment Last Done: 07/18/24 15:15
*Neglect/Abuse Screening Last Done: 07/18/24 15:15
ED- Fall Risk Assessment Last Done: 07/18/24 16:46
*ED COVID-19 Vaccine History Last Done: 07/18/24 16:46
*Nursing Disposition Last Done: 07/18/24 19:24
AR-Qoaqyh-Bijqjrkywu Assessment Last Done: 07/18/24 16:48
ED- Cardiac Assessment Last Done: 07/18/24 16:48
Discharge Date and Time
Discharge Date/Time: 07/18/24 19:30
Print Language: BELARUSIAN
[2024-07-18 16:46] VITALS: BMI 35.1
[2024-07-18 16:53] VITALS: BP 129/88
[2024-07-18] MEDS: NSS 1000 IV (16:59)
[2024-07-18 17:00] VITALS: BP 120/80
[2024-07-18] MEDS: TORADOL 30 MG IV (17:01)
[2024-07-18] MEDS: ZOFRAN 4 MG IV (17:01)
[2024-07-18 17:31] LABS: Urine Albumin Negative (Neg - Trace); Urine Bilirubin Negative (Negative); Urine Character Clear (Clear); Urine Color Straw; Urine Glucose Trace (Negative); Urine Ketone Negative (Negative); Urine Leukocyte Negative (Negative); Urine Nitrite Negative (Negative); Urine Occult Blood Negative (Negative); Urine Specific Gravity 1.005 (<1.030); Urine Urobilinogen Negative (Neg - 1+); Urine pH 6.5 (5.0-9.0)
[2024-07-18 17:37] VITALS: BP 128/90
[2024-07-18 17:38] LABS: COVID-19 Antigen Negative (Negative)
[2024-07-18 17:51] LABS: Erythrocyte Sed Rate 10 mm/hour (0-20)
[2024-07-18 18:00] VITALS: BP 119/82
[2024-07-18 18:02] LABS: Lipase 38 U/L (23-300)
[2024-07-18 19:00] VITALS: BP 113/77
[2024-07-18 19:21] LABS: C-Reactive Protein < 5.00 mg/L (0.0-10.00)
[2024-07-18 19:51] LABS: TSH Reflex To Free T4 1.85 uIU/ml (0.47-4.68)
== END 2024-07-18 19:30 | disposition home or self-care (01) ==
LOC: EMR 15:09
PROVIDERS: Nurse Practitioner; EMERGENCY PHYSICIAN Student in an Organized Health Care Education/Training Program; FAMILY PHYSICIAN Family Medicine
DX: R53.81 Other malaise (principal); J45.909 Unspecified asthma, uncomplicated; K21.9 Gastro-esophageal reflux disease without esophagitis; E11.9 Type 2 diabetes mellitus without complications; F41.9 Anxiety disorder, unspecified; F17.200 Nicotine dependence, unspecified, uncomplicated; Z82.49 Family history of ischemic heart disease and other diseases of the circulatory system; Z83.3 Family history of diabetes mellitus
CPT/HCPCS: 99283; 96374; 96375; 96361; 71046; 72202; 73130; 73564; 80053; 81003; 82962; 83690; 84443; 85025; 85652; 86140; 87502; 87811; 93005

== ENCOUNTER 2024-07-20 18:02 | Emergency (ER) | payer OTHER, SELFPAY ==
[2024-07-20 18:05] VITALS: BP 194/112
[2024-07-20 19:39] VITALS: BMI 34.9
[2024-07-20] MEDS: ZOFRAN 4 MG IV (19:56)
[2024-07-20 20:07] LABS: Urine Albumin Negative (Neg - Trace); Urine Bilirubin Negative (Negative); Urine Character Clear (Clear); Urine Color Yellow; Urine Glucose Negative (Negative); Urine Ketone Negative (Negative); Urine Leukocyte Negative (Negative); Urine Nitrite Negative (Negative); Urine Occult Blood 2+ (Negative); Urine Specific Gravity 1.005 (<1.030); Urine Urobilinogen Negative (Neg - 1+)
[2024-07-20 20:11] LABS: % Basophils 0.3 % (0-2); % Eosinophils 1.7 % (0-6); % Immature Granulocytes 0.3 % (0-0.5); % Lymphocytes 28.2 % (20.5-51.1); % Monocytes 5.7 % (1.7-9.3); % Neutrophils 63.8 % (42.2-75.2); Absolute Eosinophils 0.1 10^3/uL (0-0.7); Absolute Lymphocytes 2.1 10^3/uL (1.2-3.4); Absolute Monocytes 0.4 10^3/uL (0.1-0.6); Absolute Neutrophils 4.8 10^3/uL (1.4-6.5); Hematocrit 37.3 % (37.0-47.0); Mean Corp Hgb Conc. 34.9 g/dL (33.0-37.0); Mean Corpuscular Hgb 31.3 pg (27.0-31.0); Mean Corpuscular Volume 89.7 fL (81.0-99.0); Mean Platelet Volume 9.7 fL (7.4-10.4); Nucleated Red Blood Cells % 0 %; Platelet Count 343 10^3/uL (130-400); Red Blood Cell Count 4.16 10^6/uL (4.20-5.40); Red Cell Dist. Width 11.7 % (11.5-14.5); White Blood Cell Count 7.5 10^3/uL (4.8-10.8)
[2024-07-20 20:16] LABS: HCG, Serum Qualitative Screen Negative
[2024-07-20 20:25] LABS: ALT (SGPT) 13 U/L (0-35); AST (SGOT) 21 U/L (14-36); Albumin 4.2 g/dl (3.5-5.0); Alkaline Phosphatase 64 U/L (38-126); Blood Urea Nitrogen 8 mg/dl (7-17); Calcium 9.1 mg/dl (8.4-10.2); Carbon Dioxide 23 mmol/L (22-30); Chloride 103 mmol/L (98-107); Estimated Creatinine Clearance > 125 ml/min; Glucose 190 mg/dl (70-99); Potassium 4.3 mmol/L (3.5-5.1); Sodium 137 mmol/L (135-145); Total Bilirubin 0.3 mg/dl (0.2-1.3); Total Protein 6.7 g/dl (6.3-8.2); eGFR > 60.00
[2024-07-20 20:28] LABS: Urine Red Blood Cell 0-2 /HPF (0-2); Urine Squamous Cell 21-25 /LPF (Few); Urine White Cell 0-2 /HPF (0-5)
[2024-07-20 21:04] VITALS: BP 132/86
[2024-07-20] MEDS: REGLAN 10 MG IV (21:31)
[2024-07-20] MEDS: BENADRYL 25 MG IV (21:35)
[2024-07-20 22:08] VITALS: BP 121/86
[2024-07-20 23:00] VITALS: BP 112/88
--- NOTE | 2024-07-20 23:29 | ED.GENMED ---
History of Present Illness
General
Chief Complaint: Headache
Time Seen by Provider: 07/20/24 19:06
History of Present Illness
History of Present Illness:
34-year-old female scratch that 33-year-old female presents emergency room complaining of back pain, flank pain and headache.
Past History
Past History
ED Past Medical History: Asthma, GERD, IDDM and Psychiatric (Anxiety)
ED Past Surgical History: Orthopedic (Carpal tunnel surgery Right wrist 10/2023) and Other ([place] teeth)
Social History
Tobacco: Smoker
Alcohol: Occasional
Drug: None
Personal: Single
Living: other (Significant other)
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
Family History: Other (grandfather in 60's of heart attack, also diabetic)
Phy Exam
Physical Exam
Physical Exam:
Physical Exam
General: no apparent distress, not acutely ill
Neck: supple. no meningeal signs. normal posterior pharynx
Heart: s1/s2 regular rate and rhythm, no murmur. equal radial
pulses.
HEENT: Pupils equal round reactive to light, EOMI
Lungs: no acute respiratory distress. clear bilaterally
Abdomen: normal bowel sounds. not tender. no CVAT
Neuro: alert and oriented. no focal neurological deficits cranial nerves II through XII intact
Skin: no rash
Psychiatric: well kept. interactive and cooperative
Extremities: no edema. no calf tenderness. negative homans. good distal pulses
Course
Orders/Labs/Results
Orders:
Orders
07/20/24 19:18
Vital Signs- Treatment ONCE
Frequency: q30m
07/20/24 19:29
IV Insert/Care/Rem.- Treatment PRN
Test Result ONCE
07/20/24 19:43
CT Abd/pel Without Iv Or Oral Urgent
Comment:
Reason For Exam: left side back pain, possible stone on lumbar xray
CT Head W/o Iv Contrast Urgent
Comment:
Reason For Exam: headache
07/20/24 19:51
Complete Blood Count/With Diff Urgent
Comprehensive Metabolic Panel Urgent
HCG, Serum Qualitative Screen Urgent
07/20/24 19:53
Ondansetron Injectable [Zofran] 4 mg IV NOW STA
07/20/24 19:59
Urinalysis Reflex To Culture Urgent
Date Specimen was Collected: 07/20/24
Time Specimen was Collected: 19:55
Urine Microscopic Reflex Cult Urgent
07/20/24 21:09
Ketorolac [Toradol] 15 mg .ROUTE .STK-MED ONE
07/20/24 21:10
Ketorolac [Toradol] 15 mg IV NOW STA
07/20/24 21:23
Diphenhydramine [Benadryl] 25 mg IV NOW STA
Metoclopramide [Reglan] 10 mg IV NOW STA
Abnormal Lab Results
07/20/24 07/20/24
19:51 19:59
RBC 4.16 L 10^6/uL
(4.20-5.40)
MCH 31.3 H pg
(27.0-31.0)
Glucose 190 H mg/dl
(70-99)
Ur Occult Blood Reflex 2+ A
(Negative)
07/20/24 19:51
07/20/24 19:51
Vital Signs
Initial and Last Documented VS:
Initial Vital Signs
Temp Pulse Resp BP Pulse Ox
98.8 F 123 18 194/112 97
07/20/24 18:05 07/20/24 18:05 07/20/24 18:05 07/20/24 18:05 07/20/24 18:05
Last Documented Vital Signs
Temp Pulse Resp BP Pulse Ox
98.8 F 80 18 132/86 99
07/20/24 18:05 07/20/24 21:05 07/20/24 21:05 07/20/24 21:04 07/20/24 21:05
MDM/Problems Addressed
Differential Diagnosis Includes:
Kidney stone, UTI, migraine
MDM/Problems Addressed:
33-year-old female with migraine, do not suspect vertebral artery dissection or intracranial hemorrhage. Flank pain and back pain. No signs of infection or kidney stone. Stable for discharge. Rizatriptan and Zofran prescription given.
*Radiology
Radiology exam reviewed: radiology read reviewed (CT head and CT abdomen pelvis no acute findings)
*Pulse Oximetry
Patient hypoxic: no
*Critical Care Note
Total Time (30-74mins, 75-104mins- exclusive of procedures): Not Applicable
Patient Management
Social determinants of health affecting care: Living situation and Strong social support
Escalation/DeEscalation of care consider admission/obs:
Admit not indicated
ED Attending Note
-
Portions of this chart may have been created with voice recognition software.� Occasional wrong word or��sound alike� substitutions may have occurred due to the inherent limitations of voice recognition software.
Discharge Plan
Departure
Patient Disposition: Home (Routine Discharge)
Date of Disposition: 07/20/24
Time of Disposition: 23:24
Patient with high blood pressure during this ER visit?: Yes
Condition: Good
Discharge Problem:
Headache, migraine, Back pain
Instructions: Headache, Adult (DC), Back Pain, BLOOD PRESSURE
Prescriptions:
New
ondansetron 4 mg tablet,disintegrating
4 mg PO Q8H PRN (Reason: nausea and vomiting) 4 Days Qty: 10 0RF
rizatriptan 10 mg tablet,disintegrating
10 mg PO ONCE MDD 30 mg PRN (Reason: migraine headache) Qty: 10 0RF
Rx Instructions:
1 for headache, repeat 1 hour if headache persists.max 3 per day
No Action
venlafaxine [Effexor XR] 150 MG capsule,extended release 24hr
150 mg PO DAILY
insulin lispro [Admelog U-100 Insulin lispro] 100 UNIT/ML solution
100 unit SQ .VIA INSULIN PUMP
Patient Comments:
pt states she has an insulin pump and nuses it as directed and that the dose varies
ibuprofen 600 MG tablet
600 mg PO Q4HPRN PRN (Reason: cramps) 0RF
ondansetron 4 mg tablet,disintegrating
4 mg PO Q8H PRN (Reason: nausea and vomiting) Qty: 7 0RF
alprazolam [Xanax XR] 0.5 mg tablet extended release 24 hr
0.5 mg PO DAILY Qty: 3 0RF
ketorolac 10 mg tablet
10 mg PO QID PRN (Reason: pain) Qty: 20 0RF
Referrals:
Sarah Palacios PA [Family Provider] -
Interventions
Interventions:
*Risk Screen - Suicide Last Done: 07/20/24 18:05
*General Assessment Last Done: 07/20/24 18:05
*Neglect/Abuse Screening Last Done: 07/20/24 18:05
*ED COVID-19 Vaccine History Last Done: 07/20/24 18:05
ED- Neurological Assessment Last Done: 07/20/24 19:30
Discharge Date and Time
Print Language: ARMENIAN
== END 2024-07-20 23:30 | disposition home or self-care (01) ==
LOC: EMR 18:02
PROVIDERS: EMERGENCY PHYSICIAN Emergency Medicine; FAMILY PHYSICIAN Family Medicine
DX: G43.909 Migraine, unspecified, not intractable, without status migrainosus (principal); M54.9 Dorsalgia, unspecified; J45.909 Unspecified asthma, uncomplicated; K21.9 Gastro-esophageal reflux disease without esophagitis; E11.9 Type 2 diabetes mellitus without complications; F17.200 Nicotine dependence, unspecified, uncomplicated; Z79.4 Long term (current) use of insulin
CPT/HCPCS: 96374; 96375; 99284; 70450; 74176; 80053; 81003; 81015; 84703; 85025

== ENCOUNTER → 2024-07-24 12:51 | Outpatient (REF) | payer OTHER, SELFPAY | LOC: HWRAD 12:51 | PROVIDERS: ATTENDING PHYSICIAN Family Medicine | DX: R10.2 Pelvic and perineal pain (principal) | CPT/HCPCS: 76830; 76856 ==

== ENCOUNTER 2025-09-02 19:56 | Emergency (ER) | payer OTHER, SELFPAY ==
[2025-09-02 19:59] VITALS: BP 153/95
[2025-09-02 20:25] LABS: Hematocrit 36.5 % (37.0-47.0); Hemoglobin 12.7 g/dL (12.0-16.0); Mean Corp Hgb Conc. 34.8 g/dL (33.0-37.0); Mean Corpuscular Volume 86.9 fL (81.0-99.0); Nucleated Red Blood Cells % 0 %; Platelet Count 201 10^3/uL (130-400); Red Cell Dist. Width 12.1 % (11.5-14.5)
[2025-09-02 20:42] LABS: COVID-19 Antigen Negative (Negative)
[2025-09-02 20:49] LABS: ALT (SGPT) 15 U/L (0-35); AST (SGOT) 20 U/L (14-36); Albumin 4.3 g/dl (3.5-5.0); Alkaline Phosphatase 80 U/L (38-126); Blood Urea Nitrogen 7 mg/dl (7-17); Calcium 9.1 mg/dl (8.4-10.2); Carbon Dioxide 18 mmol/L (22-30); Chloride 104 mmol/L (98-107); Glucose 261 mg/dl (70-99); Potassium 4.0 mmol/L (3.5-5.1); Sodium 132 mmol/L (135-145); Total Protein 7.0 g/dl (6.3-8.2); eGFR > 60.00
--- NOTE | 2025-09-02 21:27 | ED.GENMED ---
History of Present Illness
General
Chief Complaint: Cold/Flu/URI Symptoms
Source: patient
Time Seen by Provider: 09/02/25 21:19
History of Present Illness
History of Present Illness:
34-year-old female presents to the emergency room complaining of nausea, vomiting, body aches, cough and feeling terrible. She is concerned she is in DKA. Patient does have type 1 diabetes and uses an insulin pump. Her significant other has
similar symptoms but is not diabetic.
Past History
Past History
ED Past Medical History: Asthma, GERD, IDDM and Psychiatric (Anxiety)
ED Past Surgical History: Orthopedic (Carpal tunnel surgery Right wrist 10/2023) and Other ([place] teeth)
Social History
Tobacco: Smoker
Alcohol: Occasional
Drug: None
Personal: Single
Living: other (Significant other)
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
Family History: Other (grandfather in 60's of heart attack, also diabetic)
Phy Exam
Physical Exam
Physical Exam:
General: Awake, Alert, Oriented X3. Appears uncomfortable from body aches and nausea
Vitals: Febrile, tachycardic
Head: Atraumatic
Eyes: Pupils equal, EOMI
Throat: Airway intact, no exudates, dry mucosa
Neck: Trachea midline
Lungs: Clear and equal b/l
Heart: Regular rate, no murmurs
Abd: Soft, Nontender, No pulsatile mass
Neuro: Nonfocal
Skin: Warm, dry, no rash
Extremities: pulses equal b/l, no edema
Sepsis
Sepsis Screening
Sepsis Assessment: Sepsis Ruled Out
Sepsis Screen
Sepsis Screen: Sepsis Ruled Out
Date: 09/02/25
Time: 23:37
Course
Orders/Labs/Results
Orders:
Orders
09/02/25 20:05
Electrocardiogram (*1) Urgent
Reason for Study: Chest Pain
EKG- Treatment ONCE
CR Chest - 2 Views Urgent
Comment:
Reason For Exam: cough, chest pain, SOB
09/02/25 20:20
B-Hydroxybutyrate Urgent
COVID-19 Antigen Urgent
Source: Nasal Swab
Complete Blood Count/With Diff Urgent
Comprehensive Metabolic Panel Urgent
Influenza A+B Rapid Molecular Urgent
NAY Source: Nasal Swab
Specimen Description:
09/02/25 21:27
0.9% Sodium Chloride 1000 ml [Nss] 1,000 ml IV BOLUS
Ketorolac [Toradol] 15 mg IV NOW STA
Ondansetron Injectable [Zofran] 4 mg IV NOW STA
09/02/25 21:28
Acetaminophen [Tylenol] 1,000 mg PO NOW STA
Abnormal Lab Results
09/02/25
20:20
Hct 36.5 L %
(37.0-47.0)
Absolute Neuts (auto) 7.9 H 10^3/uL
(1.4-6.5)
Absolute Lymphs (auto) 0.5 L 10^3/uL
(1.2-3.4)
Neutrophils % 89.2 H %
(42.2-75.2)
Lymphocytes % 5.5 L %
(20.5-51.1)
Sodium 132 L mmol/L
(135-145)
Carbon Dioxide 18 L mmol/L
(22-30)
Glucose 261 H mg/dl
(70-99)
09/02/25 20:20
09/02/25 20:20
Vital Signs
Initial and Last Documented VS:
Initial Vital Signs
Temp Pulse Resp BP Pulse Ox
102.3 F H 124 26 153/95 99
09/02/25 19:59 09/02/25 19:59 09/02/25 19:59 09/02/25 19:59 09/02/25 19:59
Last Documented Vital Signs
Temp Pulse Resp BP Pulse Ox
102.3 F H 102 19 153/95 97
09/02/25 19:59 09/02/25 22:15 09/02/25 22:15 09/02/25 19:59 09/02/25 22:15
MDM/Problems Addressed
Differential Diagnosis Includes:
COVID, influenza, pneumonia
MDM/Problems Addressed:
Patient presents with nausea vomiting sore throat body aches etc. Seems like the flu and this was confirmed with testing. Patient also concerned she may be in DKA. She does not have an anion gap. Beta hydroxybutyrate reading is normal. No
evidence for DKA.
*Radiology
Radiology exam reviewed: preliminary read by ED provider (No acute abnormality)
*Pulse Oximetry
SaO2: 99
Oxygen Mode of Delivery: Room air
Patient hypoxic: no
*EKG
Interpreted by ED Provider?: Yes
Interpretation: abnormal
Heart Rate: 106
Rate: tachycardiac
Rhythm: sinus tachycardia
[place]: normal axis
Interval: normal interval
QRS Pattern: normal QRS
Ischemia: no ischemia
*Financial Reporting Manager Interpretation
Rate: tachycardiac
Interpretation: abnormal
Rhythm: sinus tachycardia
*Critical Care Note
Total Time (30-74mins, 75-104mins- exclusive of procedures): Not Applicable
ED Attending Note
-
Portions of this chart may have been created with voice recognition software.� Occasional wrong word or��sound alike� substitutions may have occurred due to the inherent limitations of voice recognition software.
Discharge Plan
Departure
Patient Disposition: Home (Routine Discharge)
Date of Disposition: 09/02/25
Time of Disposition: 23:34
Patient with high blood pressure during this ER visit?: Yes
Condition: Good
Discharge Problem:
Influenza A
Instructions: Flu in adults - ED (DC), BLOOD PRESSURE
Prescriptions:
No Action
venlafaxine [Effexor XR] 150 MG capsule,extended release 24hr
150 mg PO DAILY
insulin lispro [Admelog U-100 Insulin lispro] 100 UNIT/ML solution
100 unit SQ .VIA INSULIN PUMP
Patient Comments:
pt states she has an insulin pump and nuses it as directed and that the dose varies
ibuprofen 600 MG tablet
600 mg PO Q4HPRN PRN (Reason: cramps) 0RF
ondansetron 4 mg tablet,disintegrating
4 mg PO Q8H PRN (Reason: nausea and vomiting) Qty: 7 0RF
alprazolam [Xanax XR] 0.5 mg tablet extended release 24 hr
0.5 mg PO DAILY Qty: 3 0RF
ketorolac 10 mg tablet
10 mg PO QID PRN (Reason: pain) Qty: 20 0RF
ondansetron 4 mg tablet,disintegrating
4 mg PO Q8H PRN (Reason: nausea and vomiting) 4 Days Qty: 10 0RF
rizatriptan 10 mg tablet,disintegrating
10 mg PO ONCE MDD 30 mg PRN (Reason: migraine headache) Qty: 10 0RF
Rx Instructions:
1 for headache, repeat 1 hour if headache persists.max 3 per day
Referrals:
Renato Barrios MD [Family Provider, Family Practice]
Activity Restrictions/Additional Instructions:
You are found to have influenza A. You can take Tylenol and ibuprofen for symptomatic relief. Push fluids.
Interventions
Interventions:
*Neglect/Abuse Screening Last Done: 09/02/25 20:04
*ED COVID-19 Vaccine History Last Done: 09/02/25 21:27
*ED Influenza Vaccine History Last Done: 09/02/25 21:27
[facility] Risk Assessment Tool Last Done: 09/02/25 21:26
*Risk Screen - Suicide (C-SSRS) Last Done: 09/02/25 20:04
ED- Pulmonary Assessment Last Done: 09/02/25 21:27
Discharge Date and Time
Print Language: [id number]
[2025-09-02] MEDS: ZOFRAN 4 MG IV (21:30)
[2025-09-02] MEDS: NSS 1000 IV (21:30)
[2025-09-02] MEDS: TORADOL 15 MG IV (21:30)
[2025-09-02] MEDS: TYLENOL 1000 MG PO (21:31)
== END 2025-09-02 23:59 | disposition home or self-care (01) ==
LOC: EMR 19:56
PROVIDERS: EMERGENCY PHYSICIAN Emergency Medicine; FAMILY PHYSICIAN Family Medicine
DX: J10.1 Influenza due to other identified influenza virus with other respiratory manifestations (principal); R11.2 Nausea with vomiting, unspecified; J45.909 Unspecified asthma, uncomplicated; E10.9 Type 1 diabetes mellitus without complications; Z79.4 Long term (current) use of insulin; F17.200 Nicotine dependence, unspecified, uncomplicated; Z96.41 Presence of insulin pump (external) (internal)
CPT/HCPCS: 99285; 96374; 96375; 71046; 80053; 82010; 85025; 87502; 87811; 93005